=== PATIENT | female | born 1965 | race Hispanic/Latino ===

== ENCOUNTER 2016-08-21 14:47 | Emergency (ER) | payer SELFPAY ==
[~2016-08-21] VITALS: Ht 160 cm; Wt 75.0 kg
[2016-08-21 19:44] LABS: URINE BILIRUBIN - DIPSTICK NEGATIVE (NEGATIVE); URINE BLOOD DIPSTICK NEGATIVE (NEGATIVE); URINE CLARITY CLEAR; URINE COLOR YELLOW; URINE GLUCOSE - DIPSTICK NEGATIVE (NEGATIVE); URINE KETONE NEGATIVE (NEGATIVE); URINE LEUK ESTERASE NEGATIVE (NEGATIVE); URINE NITRITE - DIPSTICK NEGATIVE (Negative); URINE PROTEIN - DIPSTICK NEGATIVE (NEG-TRACE); URINE UROBILINOGEN - DIPSTICK 0.2 E.U./dL (0.2)
[2016-08-21 19:58] LABS: HEMOGLOBIN 14.4 g/dl (12.0-16.0); IMMATURE GRANULOCYTES 0.6 % (0.0-1.0); MEAN CELL VOLUME 92.1 fL CALC (80.0-100.0); MEAN CORPUSCULAR HGB 31.6 pG CALC (26.0-32.0); MEAN CORPUSCULAR HGB CONC 34.3 g/L CALC (32.0-36.0); NEUT# 2.57 thou/uL (2.00-7.15); RED BLOOD COUNT 4.56 mill/uL (4.20-5.60); RED CELL DISTRI WIDTH 12.1 % (11.5-15.5)
[2016-08-21 20:15] LABS: ALKALINE PHOSPHATASE 91 u/l (38-126); AMYLASE 70 u/l (30-110); ANION GAP 16 (6-22 (CALC)); BILIRUBIN, TOTAL 0.5 mg/dL (0.0-1.4); BUN 12 mg/dL (7-17); BUN/CREATININE RATIO 21 (12-20 (CALC)); CARBON DIOXIDE 24 mmol/l (22-30); CHLORIDE 107 mmol/l (95-108); CREATININE 0.6 mg/dL (0.5-1.0); GFR > 60 ML/MIN (>=60 (CALC)); GFR FOR AFR.AMER. > 60 ML/MIN (>=60 (CALC)); GLUCOSE 89 mg/dL (65-105); LIPASE 74 u/l (23-300); POTASSIUM 3.9 mmol/l (3.5-5.1); SGOT/AST 88 u/l (14-36); SGPT/ALT 128 u/l (9-52); SODIUM 142 mmol/l (137-146); TOTAL PROTEIN 7.7 g/dL (6.3-8.2)
[2016-08-22 03:45] VITALS: BP 138/76
== END 2016-08-22 03:56 | disposition home or self-care (01) | DRG 392 ==
LOC: ED 14:47
PROVIDERS: Emergency Medicine
DX: R10.13 Epigastric pain (principal); R11.2 Nausea with vomiting, unspecified; R10.11 Right upper quadrant pain
CPT/HCPCS: S0164

== ENCOUNTER 2016-10-03 17:13 | Emergency (ER) | payer SELFPAY ==
[~2016-10-03] VITALS: Ht 160 cm; Wt 68.0 kg
[2016-10-03 18:05] LABS: HEMATOCRIT 40.4 % (37.0-47.0); HEMOGLOBIN 14.3 g/dl (12.0-16.0); IMMATURE GRANULOCYTES 0.3 % (0.0-1.0); MEAN CELL VOLUME 92.9 fL CALC (80.0-100.0); MEAN CORPUSCULAR HGB 32.9 pG CALC (26.0-32.0); MEAN CORPUSCULAR HGB CONC 35.4 g/L CALC (32.0-36.0); NEUT# 5.25 thou/uL (2.00-7.15); RED BLOOD COUNT 4.35 mill/uL (4.20-5.60); RED CELL DISTRI WIDTH 12.4 % (11.5-15.5)
[2016-10-03 18:20] LABS: ALBUMIN 4.4 g/dL (3.2-5.0); ALKALINE PHOSPHATASE 131 u/l (38-126); ANION GAP 15 (6-22 (CALC)); BILIRUBIN, TOTAL 0.4 mg/dL (0.0-1.4); BUN 17 mg/dL (7-17); BUN/CREATININE RATIO 26 (12-20 (CALC)); CALCIUM 9.5 mg/dL (8.4-10.2); CARBON DIOXIDE 26 mmol/l (22-30); CHLORIDE 104 mmol/l (95-108); CREATININE 0.6 mg/dL (0.5-1.0); GFR > 60 ML/MIN (>=60 (CALC)); GFR FOR AFR.AMER. > 60 ML/MIN (>=60 (CALC)); GLUCOSE 115 mg/dL (65-105); POTASSIUM 3.9 mmol/l (3.5-5.1); SGOT/AST 142 u/l (14-36); SGPT/ALT 210 u/l (9-52); SODIUM 141 mmol/l (137-146); TOTAL PROTEIN 8.4 g/dL (6.3-8.2)
[2016-10-03 18:56] LABS: URINE BILIRUBIN - DIPSTICK NEGATIVE (NEGATIVE); URINE BLOOD DIPSTICK TRACE-INTACT (NEGATIVE); URINE CLARITY CLEAR; URINE COLOR YELLOW; URINE GLUCOSE - DIPSTICK NEGATIVE (NEGATIVE); URINE KETONE NEGATIVE (NEGATIVE); URINE LEUK ESTERASE NEGATIVE (NEGATIVE); URINE NITRITE - DIPSTICK NEGATIVE (Negative); URINE PH 6.5 (4.5-8.0); URINE PROTEIN - DIPSTICK TRACE mg/dL (NEG-TRACE); URINE SPECIFIC GRAVITY 1.015; URINE UROBILINOGEN - DIPSTICK 0.2 E.U./dL (0.2)
[2016-10-03] MEDS ORDERED: MOTRIN800 MG PO ×2 (19:15→22:23)
[2016-10-03 22:35] VITALS: BP 149/74
== END 2016-10-03 22:45 | disposition home or self-care (01) | DRG 605 ==
LOC: ED 17:13
PROVIDERS: Emergency Medicine
DX: S30.1XXA Contusion of abdominal wall, initial encounter (principal); R10.84 Generalized abdominal pain; Y04.2XXA Assault by strike against or bumped into by another person, initial encounter; Y92.009 Unspecified place in unspecified non-institutional (private) residence as the place of occurrence of the external cause
CPT/HCPCS: Q9967

== ENCOUNTER 2018-03-29 22:12 | Emergency (ER) | payer SELFPAY ==
[~2018-03-29] VITALS: Ht 160 cm; Wt 68.2 kg
[~2018-03-29 22:12] MED LIST: MOTRIN800 MG PO
[2018-03-29 22:47] LABS: HEMATOCRIT 40.1 % (37.0-47.0); HEMOGLOBIN 13.8 g/dl (12.0-16.0); IMMATURE GRANULOCYTES 0.2 % (0.0-5.0); MEAN CORPUSCULAR HGB 32.7 pG CALC (26.0-32.0); MEAN CORPUSCULAR HGB CONC 34.4 g/L CALC (32.0-36.0); NEUT# 3.77 thou/uL (2.00-7.15); RED BLOOD COUNT 4.22 mill/uL (4.20-5.60)
[2018-03-29 23:05] LABS: ALBUMIN 4.1 g/dL (3.2-5.0); ALKALINE PHOSPHATASE 134 u/l (38-126); ANION GAP 14 (6-22 (CALC)); BILIRUBIN, TOTAL 0.2 mg/dL (0.0-1.4); BUN 21 mg/dL (7-17); BUN/CREATININE RATIO 35 (12-20 (CALC)); CARBON DIOXIDE 25 mmol/l (22-30); CHLORIDE 108 mmol/l (95-108); CREATININE 0.6 mg/dL (0.5-1.0); GFR > 60 ML/MIN (>=60 (CALC)); GFR FOR AFR.AMER. > 60 ML/MIN (>=60 (CALC)); POTASSIUM 3.4 mmol/l (3.5-5.1); SGOT/AST 51 u/l (14-36); SODIUM 143 mmol/l (137-146); TOTAL PROTEIN 7.7 g/dL (6.3-8.2)
[2018-03-29 23:06] LABS: ACT PARTIAL THROMBO TIME 25.7 SECONDS (20.0-32.5); PROTHROMBIN TIME 10.2 SECONDS (9.0-12.5)
[2018-03-29 23:17] LABS: MYOGLOBIN 32 ng/mL (0 - 62)
[2018-03-29 23:51] VITALS: BP 120/62
== END 2018-03-30 02:00 | disposition left against medical advice (07) | DRG 313 ==
LOC: ED 22:12 → ED-I 03-30 01:10 → ED 03-30 01:28 → MS2 03-30 01:29 → ED 03-30 02:00
PROVIDERS: Emergency Medicine
DX: R07.9 Chest pain, unspecified (principal); E66.9 Obesity, unspecified; F41.9 Anxiety disorder, unspecified; Z91.19 Patient's noncompliance with other medical treatment and regimen

== ENCOUNTER 2018-04-14 14:24 | Emergency (ER) | payer SELFPAY ==
[~2018-04-14] VITALS: Ht 160 cm; Wt 63.0 kg
[2018-04-14 17:12] VITALS: BP 138/73
[2018-04-14] MEDS ORDERED: AUGMENTIN875TAB PO (18:10)
[2018-04-14] MEDS ORDERED: IBUPROFEN600 MG PO (18:10)
[2018-04-14] MEDS ORDERED: BACTROBAN TOP (18:10)
== END 2018-04-14 18:17 | disposition home or self-care (01) | DRG 605 ==
LOC: ED 14:24
DX: S61.451A Open bite of right hand, initial encounter (principal); S60.511A Abrasion of right hand, initial encounter; R22.31 Localized swelling, mass and lump, right upper limb; W54.0XXA Bitten by dog, initial encounter; Y93.K9 Activity, other involving animal care; Y92.007 Garden or yard of unspecified non-institutional (private) residence as the place of occurrence of the external cause

== ENCOUNTER 2018-07-21 10:00 | Emergency (ER) | payer SELFPAY ==
[~2018-07-21] VITALS: Ht 160 cm; Wt 90.0 kg
[~2018-07-21 10:00] MED LIST changes: +AUGMENTIN875TAB PO; +BACTROBAN TOP; +IBUPROFEN600 MG PO
[2018-07-21 10:45] LABS: HEMATOCRIT 44.7 % (37.0-47.0); HEMOGLOBIN 15.3 g/dl (12.0-16.0); IMMATURE GRANULOCYTES 0.2 % (0.0-5.0); MEAN CELL VOLUME 94.3 fL CALC (80.0-100.0); MEAN CORPUSCULAR HGB 32.3 pG CALC (26.0-32.0); MEAN CORPUSCULAR HGB CONC 34.2 g/L CALC (32.0-36.0); NEUT# 2.7 thou/uL (2.00-7.15); RED BLOOD COUNT 4.74 mill/uL (4.20-5.60); RED CELL DISTRI WIDTH 12.3 % (11.5-15.5)
[2018-07-21 10:59] LABS: ALBUMIN 4.5 g/dL (3.2-5.0); ALKALINE PHOSPHATASE 84 u/l (38-126); BILIRUBIN, TOTAL 0.6 mg/dL (0.0-1.4); BUN 10 mg/dL (7-17); BUN/CREATININE RATIO 19 (12-20 (CALC)); CARBON DIOXIDE 25 mmol/l (22-30); CHLORIDE 103 mmol/l (95-108); CREATININE 0.5 mg/dL (0.5-1.0); GFR > 60 ML/MIN (>=60 (CALC)); GFR FOR AFR.AMER. > 60 ML/MIN (>=60 (CALC)); LIPASE 75 u/l (23-300); SGOT/AST 89 u/l (14-36); SODIUM 139 mmol/l (137-146); TOTAL PROTEIN 8.2 g/dL (6.3-8.2)
[2018-07-21 11:00] LABS: ANION GAP 15 (6-22 (CALC)); POTASSIUM 4.3 mmol/l (3.5-5.1)
[2018-07-21 11:09] LABS: URINE BILIRUBIN - DIPSTICK NEGATIVE (NEGATIVE); URINE BLOOD DIPSTICK NEGATIVE (NEGATIVE); URINE COLOR YELLOW; URINE GLUCOSE - DIPSTICK NEGATIVE (NEGATIVE); URINE KETONE NEGATIVE (NEGATIVE); URINE LEUK ESTERASE NEGATIVE (NEGATIVE); URINE NITRITE - DIPSTICK NEGATIVE (Negative); URINE PH 6.5 (4.5-8.0); URINE PROTEIN - DIPSTICK NEGATIVE (NEG-TRACE); URINE UROBILINOGEN - DIPSTICK 0.2 E.U./dL (0.2)
[2018-07-21 14:27] VITALS: BP 127/70
== END 2018-07-21 15:01 | disposition home or self-care (01) | DRG 392 ==
LOC: ED 10:00
PROVIDERS: Family Medicine
DX: R10.11 Right upper quadrant pain (principal)
CPT/HCPCS: Q9967

== ENCOUNTER 2019-07-19 | Emergency (ER) | payer SELFPAY ==
[2019-07-19 09:13] LABS: URINE BILIRUBIN - DIPSTICK NEGATIVE (NEGATIVE); URINE BLOOD DIPSTICK NEGATIVE (NEGATIVE); URINE COLOR YELLOW; URINE GLUCOSE - DIPSTICK NEGATIVE (NEGATIVE); URINE KETONE NEGATIVE (NEGATIVE); URINE LEUK ESTERASE TRACE (NEGATIVE); URINE NITRITE - DIPSTICK NEGATIVE (Negative); URINE PH 6.5 (4.5-8.0); URINE PROTEIN - DIPSTICK NEGATIVE (NEG-TRACE); URINE UROBILINOGEN - DIPSTICK 0.2 E.U./dL (0.2)
[2019-07-19] MEDS ORDERED: AUGMENTIN500TAB PO (09:58)
== END 2019-07-19 10:14 | disposition home or self-care (01) | DRG 153 ==
DX: H66.92 Otitis media, unspecified, left ear (principal); J02.9 Acute pharyngitis, unspecified

== ENCOUNTER 2020-02-10 10:51 | Observation (INO) | payer SELFPAY ==
[~2020-02-10] VITALS: Ht 152.4 cm; Wt 78.2 kg
[~2020-02-10 10:51] MED LIST changes: +AUGMENTIN500TAB PO
--- NOTE | 2020-02-10 10:52 | NUR ---
PATIENT AMBULATED TO ROOM WITH STEADY GAIT AND PHYSICIAN AT BEDSIDE FOR EVAL
--- NOTE | 2020-02-10 11:40 | NUR ---
PT AMBULATED WITH STEADY GAIT TO ROOM AND STATES HAVING PAIN 7/10 IN THE CHEST. PT DENIES N/V, BLURRED VISION, OR SOB. SHE DOES ADMIT TO HAVING DIZZINESS. SINUS JOSEPH OF 47-56 BPM. STATING OF INTERM WAVES OF POTENTIAL SYNCOPY. SKIN WNL.WEAKNESS NOTED. NIH 0. PERRLA. AOX4. STATES HAVING "HEART PROBLEMS' 2 YEARS AGO BUT CANNOT BE SPECIFIC. DENIES TAKING ANY MEDICATIONS DAILY, DENIES ANY PRESCRIPTIONS PRESCRIBED. UPPER LEFT CHEST TENDER UPON PALPATION. WILL CONTINUE TO MONITOR.
[2020-02-10 11:47] LABS: HEMATOCRIT 42.9 % (37.0-47.0); HEMOGLOBIN 14.3 g/dl (12.0-16.0); IMMATURE GRANULOCYTES 0.1 % (0.0-5.0); MEAN CELL VOLUME 94.7 fL CALC (80.0-100.0); MEAN CORPUSCULAR HGB 31.6 pG CALC (26.0-32.0); MEAN CORPUSCULAR HGB CONC 33.3 g/dL CAL (32.0-36.0); NEUT# 2.83 thou/uL (2.00-7.15); RED BLOOD COUNT 4.53 mill/uL (4.20-5.60); RED CELL DISTRI WIDTH 12.2 % (11.5-15.5)
--- NOTE | 2020-02-10 12:30 | NUR ---
PT RECONNECTED TO MONITORING EQUIPMENT. DENIES ANY NEEDS. CHEST PAIN HAS REDUCED TO 0/10. CALL LIGHT WITHIN REACH
[2020-02-10 12:31] LABS: ALBUMIN 4.1 g/dL (3.2-5.0); ALKALINE PHOSPHATASE 109 u/l (38-126); ANION GAP 10 (6-22 (CALC)); BILIRUBIN, TOTAL 0.6 mg/dL (0.0-1.4); BUN 17 mg/dL (7-17); BUN/CREATININE RATIO 31 (12-20 (CALC)); CARBON DIOXIDE 27 mmol/l (22-30); CHLORIDE 105 mmol/l (95-108); CREATININE 0.6 mg/dL (0.5-1.0); GFR > 60 ML/MIN (>=60 (CALC)); GFR FOR AFR.AMER. > 60 ML/MIN (>=60 (CALC)); LIPASE 83 u/l (23-300); POTASSIUM 3.5 mmol/l (3.5-5.1); SGOT/AST 59 u/l (14-36); SODIUM 139 mmol/l (137-146); TOTAL PROTEIN 7.6 g/dL (6.3-8.2)
--- NOTE | 2020-02-10 13:30 | NUR ---
PT RESTING WITH EYES CLOSED
--- NOTE | 2020-02-10 14:30 | NUR ---
GODFREY ALARCON AND Claudia AT BEDSIDE DISCUSSING ADMISSION. PT PLACED CONCERNS AND PLAN OF CARE MENTIONED.
--- NOTE | 2020-02-10 15:12 | NUR ---
REPORT REC FROM SAEID MUELLER
--- NOTE | 2020-02-10 15:18 | NUR ---
GAVE REPORT TO HOME
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
--- NOTE | 2020-02-10 15:29 | NUR ---
Admission Note Report Given to: HOME Transported by: X Wheelchair Stretcher Transported with: X Nurse Transporter X Patent IV O2 X Geomagnetician Location: ICU X MS2 PT TRANSPORTED STABLE AND IN NO DISTRESS TO MED SURG. CARE ASSUMED TO HOME
[2020-02-10 15:30] VITALS: BP 149/76
--- NOTE | 2020-02-10 16:25 | NUR ---
PT BRADYCARDIC WITH HR FLUCTUATING FROM 42-50 BPM. AGNES DONAHUE NOTIFIED, ALREADY AWARE OF TREND. CONTINUE TO MONITOR PT. PT CURRENTLY ASYMPTOMATIC BESIDES FEELING DIZZINESS. CALL LIGHT IN REACH. CONTINUE TO MONITOR.
--- NOTE | 2020-02-10 17:25 | NUR ---
PT SITTING ON THE SIDE OF THE BED EATING DINNER. NO NEEDS AT THIS TIME. CALL LIGHT IN REACH. CONTINUE TO MONITOR.
[2020-02-10 19:00] VITALS: BP 135/66
--- NOTE | 2020-02-10 20:22 | NUR ---
PT RESTING IN BED, NO SIGNS OF DISTRESS NOTED, RESP EVEN AND UNLABORED, PT ALERT AND ORIENTED X3, DISCUSSED POC, DENIES ANY PAIN AT THIS TIME. ASSESSMENT COMPLETED. CALL LIGHT IN REACH,CONTINUE TO MONITOR.
[2020-02-10 23:31] VITALS: BP 141/73
--- NOTE | 2020-02-11 | NUR ---
PT RESTING IN BED WITH EYES CLOSED, NO SIGNS OF DISTRESS NOTED, RESP EVEN AND UNLABORED. CALL LIGHT IN REACH,CONTINUE TO MONITOR.
[2020-02-11 04:00] VITALS: BP 103/66
[2020-02-11 04:05] VITALS: BP 134/97
[2020-02-11 05:58] LABS: HEMATOCRIT 40.5 % (37.0-47.0); HEMOGLOBIN 13.6 g/dl (12.0-16.0); MEAN CELL VOLUME 94.6 fL CALC (80.0-100.0); MEAN CORPUSCULAR HGB 31.8 pG CALC (26.0-32.0); MEAN CORPUSCULAR HGB CONC 33.6 g/dL CAL (32.0-36.0); NEUT# 2.32 thou/uL (2.00-7.15); RED BLOOD COUNT 4.28 mill/uL (4.20-5.60)
[2020-02-11 06:19] LABS: ALBUMIN 3.8 g/dL (3.2-5.0); ALKALINE PHOSPHATASE 93 u/l (38-126); ANION GAP 9 (6-22 (CALC)); BILIRUBIN, TOTAL 0.6 mg/dL (0.0-1.4); BUN 14 mg/dL (7-17); BUN/CREATININE RATIO 30 (12-20 (CALC)); CALCULATED LDLCHOLESTEROL 124 mg/dL (62-129 (CALC)); CARBON DIOXIDE 28 mmol/l (22-30); CHLORIDE 104 mmol/l (95-108); CREATININE 0.5 mg/dL (0.5-1.0); GFR > 60 ML/MIN (>=60 (CALC)); GFR FOR AFR.AMER. > 60 ML/MIN (>=60 (CALC)); HDL CHOLESTEROL 39 mg/dL (>=40); MAGNESIUM 2.1 mg/dL (1.6-2.3); POTASSIUM 3.7 mmol/l (3.5-5.1); SGOT/AST 55 u/l (14-36); SODIUM 137 mmol/l (137-146); TOTAL CHOLESTEROL 192 mg/dl (0-199); TOTAL TRIGLYCERIDES 148 mg/dl (30-149); VLDL CHOLESTROL 30 mg/dl (2-49 (CALC))
--- NOTE | 2020-02-11 06:44 | NUR ---
PT RESTING IN BED, NO SIGNS OF DISTRESS NOTED, RESP EVEN AND UNLABORED. REQUESTING TEA. CALL LIGHT IN REACH,CONTINUE TO MONITOR.
[2020-02-11 07:12] VITALS: BP 146/81
--- NOTE | 2020-02-11 07:26 | NUR ---
PT LAYING IN BED WATCHING TV. A&O X3. NO DISTRESS NOTED. PT REPORTS TO BE FEELING SLIGHTLY BETTER THAN YESTERDAY. NO OTHER NEEDS AT THIS TIME. ASSESSMENT COMPLETED. DISCUSSED POC. CALL LIGHT IN REACH. CONTINUE TO MONITOR.
[2020-02-11 10:30] VITALS: BP 145/84
--- NOTE | 2020-02-11 10:30 | NUR ---
PT C/O WEAKNESS AND FEELING SOB. VS TAKEN. 145/84, HR 53 AND O2 AT 95% RA. HOB ELEVATED. PT REPORTS TO FEEL SLIGHTLY BETTER AFTER HOB WAS ELEVATED. CALL LIGHT IN REACH. ENCOURAGED PT TO CALL IF SOB RETURNED.
--- NOTE | 2020-02-11 12:32 | NUR ---
PT SITTING IN BED. NO DISTRESS OR NEEDS AT THIS TIME. CALL LIGHT IN REACH. CONTINUE TO MONITOR.
--- NOTE | 2020-02-11 13:44 | NUR ---
CALLED DR. CULP OFFICE AT [phone] SPOKE TO HERNAN STATED SHE WILL GIVE HIM THE CONSULTATION.
[2020-02-11 15:00] VITALS: BP 133/72
--- NOTE | 2020-02-11 18:48 | NUR ---
D/C INSTRUCTIONS GIVEN AND REVIEWED WITH PT. PT STILL AWAITING ON TRANSPORT TO GO HOME. IV LEFT IN PLACE AND TO BE REMOVED WHEN D/C'D
[2020-02-11 19:21] VITALS: BP 145/84
--- NOTE | 2020-02-11 20:30 | NUR ---
IV SITE D/C'D, CATH INTACT, 2X2 WRAPPED WITH COBAN APPLIED. TELE REMOVED. PT [facility] LOB[facility]CHAIR[facility]
== END 2020-02-11 20:30 | disposition home or self-care (01) | DRG 313 ==
LOC: ED 10:51 → ED-I 13:20 → ED 14:12 → MS2 14:13
PROVIDERS: Family Medicine; Nurse Practitioner; ADMIT Internal Medicine; ATTEND Internal Medicine
DX: R07.89 Other chest pain (principal); R00.1 Bradycardia, unspecified; R42 Dizziness and giddiness; I49.3 Ventricular premature depolarization; I49.1 Atrial premature depolarization; Z20.828 Contact with and (suspected) exposure to other viral communicable diseases
CPT/HCPCS: G0378; J1650

== ENCOUNTER 2020-08-09 05:21 | Observation (INO) | payer SELFPAY ==
[~2020-08-09] VITALS: Ht 152.4 cm; Wt 81.0 kg
--- NOTE | 2020-08-09 05:25 | NUR ---
PT AMBUALTORY TO ROOM # 6 FOR BEDSIDE TRIAGE.
--- NOTE | 2020-08-09 06:20 | NUR ---
IV INTIATED TO LEFT WRIST AREA WITH BLOOD SPECIMENS AND FIRST SET OF BLOOD CULTURES OBTAINED. SWABS COLLECTED PER ORDER. PT AMBULATORY TO BR FOR URINE SPECIMEN. DISCUSSED WITH PT WAIT TIME FOR RESULTS. VERBALIZED UNDERSTANIDNG. DENIES ANY NEEDS. CALL LIGHT WITHIN REACH.
[2020-08-09 06:34] LABS: HEMATOCRIT 44.3 % (37.0-47.0); HEMOGLOBIN 14.6 g/dl (12.0-16.0); IMMATURE GRANULOCYTES 0.3 % (0.0-5.0); MEAN CELL VOLUME 96.3 fL CALC (80.0-100.0); MEAN CORPUSCULAR HGB 31.7 pG CALC (26.0-32.0); NEUT# 2.88 thou/uL (2.00-7.15); RED BLOOD COUNT 4.6 mill/uL (4.20-5.60); RED CELL DISTRI WIDTH 12.4 % (11.5-15.5)
[2020-08-09 06:36] LABS: URINE BILIRUBIN - DIPSTICK NEGATIVE (NEGATIVE); URINE BLOOD DIPSTICK NEGATIVE (NEGATIVE); URINE COLOR YELLOW; URINE GLUCOSE - DIPSTICK NEGATIVE (NEGATIVE); URINE KETONE NEGATIVE (NEGATIVE); URINE NITRITE - DIPSTICK NEGATIVE (Negative); URINE PROTEIN - DIPSTICK NEGATIVE (NEG-TRACE); URINE UROBILINOGEN - DIPSTICK 0.2 E.U./dL (0.2)
[2020-08-09 06:53] LABS: URINE LEUK ESTERASE SMALL (NEGATIVE)
[2020-08-09 06:54] LABS: URINE RBC 0-2 RBC/hpf (0-5); URINE SQUAMOUS EPITHELIAL CELL MANY EPI/hpf (0-FEW)
[2020-08-09 06:57] LABS: ACT PARTIAL THROMBO TIME 25.4 SECONDS (20.0-32.5); INTERNATIONAL NORMALIZED RATIO 1.1 RATIO (0.7-1.3); PROTHROMBIN TIME 11.1 SECONDS (9.0-12.5)
--- NOTE | 2020-08-09 07:00 | NUR ---
RECEIVED REPORT FROM GENE MUELLER.
--- NOTE | 2020-08-09 07:00 | NUR ---
REPORT TO SHARON MUELLER.
[2020-08-09 07:06] LABS: D-DIMER 0.25 mg/L (0.19-0.60)
--- NOTE | 2020-08-09 07:31 | NUR ---
MD AT BEDSIDE TO DISCUSS RESULTS AND POC.
[2020-08-09 07:40] LABS: ALBUMIN 4.2 g/dL (3.2-5.0); ALKALINE PHOSPHATASE 93 u/l (38-126); AMYLASE 73 u/l (30-110); ANION GAP 11 (6-22 (CALC)); BILIRUBIN, TOTAL 0.7 mg/dL (0.0-1.4); BUN 14 mg/dL (7-17); BUN/CREATININE RATIO 24 (12-20 (CALC)); CARBON DIOXIDE 28 mmol/l (22-30); CHLORIDE 104 mmol/l (95-108); CREATININE 0.6 mg/dL (0.5-1.0); GFR > 60 ML/MIN (>=60 (CALC)); GFR FOR AFR.AMER. > 60 ML/MIN (>=60 (CALC)); LIPASE 76 u/l (23-300); POTASSIUM 3.9 mmol/l (3.5-5.1); SGOT/AST 63 u/l (14-36); SODIUM 139 mmol/l (137-146)
[2020-08-09 10:45] VITALS: BP 138/91
--- NOTE | 2020-08-09 10:45 | NUR ---
REPORT RECEIVED FROM AMI HERRERA. PT CURRENTLY LOCATED IN ER ROOM 6 ON DROPLET PRECAUTIONS FOR POSITIVE FLU A SWAB. RESTING ON STRETCHER SEMI FOWLERS; ALERT AND ORIENTED X 3; [facility] SPEAKING ONLY; GPS FIELD DATA COLLECTOR AT BEDSIDE FOR ADMISSION ASSESSMENT. PT DENIES PAIN CURRENTLY. RESPIRATIONS EVEN AND UNLABORED ON ROOM AIR. SKIN IS FLUSHED, HOT, AND MOIST; AFEBRILE 96.9; VSS. IV SITE TO LEFT WRIST APPEARS HEALTHY AND FLUSHES. POC DISCUSSED. PT ENCOURAGED TO VERBALIZE CONCERNS; STATES UNDERSTANDING. SAFETY MEASURES IN PLACE. CALL LIGHT WITHIN REACH.
--- NOTE | 2020-08-09 11:57 | NUR ---
DR. CHEEMA AT BEDSIDE ALONG WITH BARN AND PROPERTY MANAGER.
--- NOTE | 2020-08-09 13:13 | NUR ---
PATIENT WILL BENEFIT FROM PHYSICAL THERAPY. ORDER FOR PHYSCIAL THERAPY EVALUATION, TREATMENT, AND RECOMMENDATION.
[2020-08-09 13:30] VITALS: BP 138/66
--- NOTE | 2020-08-09 14:05 | NUR ---
TRANSPORTED TO [facility] ROOM 263 VIA STRETCHER; ALERT AND ORIENTED. AMBULATED TO BATHROOM FOR VOID AND INTO BED. TELEMETRY BOX APPLIED AND VERIFIED WITH LSEO; SINUS RHYTHM HR 60. VSS. MEDICATIONS ADMINSITERED. ORIENTED TO NEW ROOM AND CALL LIGHT SYSTEM. FLAT SPRING ASSEMBLER AT BEDSIDE TO REVIEW POC AND REVIEW VISITOR POLICY. SAFETY MEASURES IN PLACE. CALL LIGHT WITHIN REACH.
[2020-08-09 15:20] VITALS: BP 140/79
--- NOTE | 2020-08-09 16:00 | NUR ---
FLEXERIL GIVEN FOR PERSISTENT HEAD AND NECK DISCOMFORT; MORE ON THE LEFT.
[2020-08-09 18:57] VITALS: BP 151/82
--- NOTE | 2020-08-09 19:00 | NUR ---
REPORT RECEIVED FROM Myla DE LEON RN, CARE OF PT ASSUMED AT THIS TIME.
--- NOTE | 2020-08-09 20:07 | NUR ---
PT LAYING IN BED WITH EYES CLOSED, RESPIRATIONS REGULAR AND UNLABORED, APPEARS TO BE SLEEPING COMFORTABLY. PT WAKES EASILY WITH VERBAL STIMULI. PHYSICAL ASSESMENT COMPLETE. PT REPORTS HEAD AND NECK PAIN ARE GONE AND SHE IS NOW EXPERIENCING PAIN TO RUE, ELBOW TO HAND. C/S/M INTACT. PRN APAP AND FLEXERIL ADMINISTERED CO-CURRENTLY WITH SCHEDULED MEDICATIONS. PLAN OF CARE REVIEWED, PT VERBALIZES UNDERSTANDING AND DENIES QUESTIONS. DENTURE CUP PROVIDED FOR PT'S DENTURES. PT DENIES FURTHER NEEDS AT THIS TIME. CALL CONNOLLY WITHIN REACH, AGREES TO CALL PRN.
--- NOTE | 2020-08-10 | NUR ---
PT APPEARS TO BE SLEEPING COMFORTABLY, LAYING IN BED WITH EYES CLOSED, RESPIRATIONS REGULAR AND UNLABORED, NO APPARENT DISTRESS. CALL CONNOLLY REMAIN WITHIN REACH.
[2020-08-10 04:00] VITALS: BP 111/72
--- NOTE | 2020-08-10 04:10 | NUR ---
PAUL FINANCE INTERN IN ROOM TO DRAW AM LABS
[2020-08-10 06:34] LABS: CHOLESTEROL HDL RATIO 4.9 (<4.4 (CALC)); MAGNESIUM 2.2 mg/dL (1.6-2.3)
[2020-08-10 08:10] VITALS: BP 130/63
--- NOTE | 2020-08-10 08:10 | NUR ---
ASSESSMENT IS COMPLETED: IV SITE IS FREE FROM REDNESS OR EDEMA. HR IS REG,PULSES ARE STRONG X4, ABD IS SOFT WITH ACTIV EBS. BREATH SOUDNS ARE CLEAR,BILATERALLY, TELE MONITOR IN PLACE. C/O HEADACHE AND NECK DISCOMFORT
[2020-08-10 10:30] VITALS: BP 140/84
--- NOTE | 2020-08-10 12:15 | NUR ---
PT IS RELAXING IN BED WITH NO DISTRESS NOTED. IV SITE IS FREE FROM REDNESS OR EDEMA.
[2020-08-10 15:00] VITALS: BP 122/75
--- NOTE | 2020-08-10 16:15 | NUR ---
PT TOOK A SHOWER, C/O R SIDED ABD DISCOMFORT. INFORMED THE NURSE PRACTIONER. IV SITE REMAINS FREE FROM REDNESS OR EDEMA., CONTINUE TO OSBERVE AND MONITOR.
--- NOTE | 2020-08-10 18:07 | NUR ---
PT C/O PAIN MEDICATION GIVEN.
[2020-08-10 18:51] VITALS: BP 143/76
--- NOTE | 2020-08-10 19:00 | NUR ---
REPORT RECEIVED FROM Rosina LOPEZ LPN, CARE OF PT ASSUMED AT THIS TIME.
--- NOTE | 2020-08-10 21:00 | NUR ---
PT LYING IN BED SEMI-FOWLERS, TALKING ON MOBILE PHONE. PHYSICAL ASSESMENT COMPLETE. PT REPORTS HER HEAD FEELS BETTER BUT HER LOWER ANTERIOR RIBS ARE IN PAIN. REPORTS IT "HURTS IN HER BONES LIKE WHEN YOU HAVE THE FLU", PRN FLEXERIL AND ULTRAM ADMINISTERED WITH SCHEDULED MEDICATIONS, SEE E-MAR. PLAN OF CARE REVIEWED, PT PARTICIPATES IN TEACHING, VERBALIZES UNDERSTANDING AND DENIES QUESTIONS. FRESH ICE WATER AND APPLE JUICE PROVIDED PER PTS REQUEST. PT DENIES FURTHER NEEDS AT THIS TIME. CALL CONNOLLY WITHIN REACH, AGREES TO CALL PRN. BED LOCKED IN LOW POSITION WITH BEDRAILS UP X2.
[2020-08-10 23:55] VITALS: BP 147/83
--- NOTE | 2020-08-11 | NUR ---
PT APPEARS TO BE SLEEPING COMFORTABLY, LAYING IN BED WITH EYES CLOSED, RESPIRATIONS REGULAR AND UNLABORED, NO APPARENT DISTRESS. CALL CONNOLLY REMAIN WITHIN REACH. BED REMAINS LOCKED IN LOW POSITION WITH BEDRAIL UP X2.
[2020-08-11 04:00] VITALS: BP 146/81
[2020-08-11 08:00] VITALS: BP 153/66
--- NOTE | 2020-08-11 08:00 | NUR ---
ASSESSMENT IS COMPLETED: IV SITE IS FREE FROM REDNESS OR EDEMA/. HR IS REG,PULSES ARE STRONG X4, ABD IS SOFT WITH ACTIVE BS. BREATH SOUNDS ARE CLEAR,BILATERALLY. TELE MONITOR IN PLACE. CONTINUE TO OSBERVE AND MONITOR.
[2020-08-11] MEDS ORDERED: TRAMADOL HCL50 MG PO (08:31)
[2020-08-11] MEDS ORDERED: CYCLOBENZAPR5 MG PO (08:31)
[2020-08-11] MEDS ORDERED: FIORICET PO (08:31)
[2020-08-11] MEDS ORDERED: TAM75CAP PO (08:31)
[2020-08-11] MEDS ORDERED: MEDDOSEPAK PO (08:31)
[2020-08-11] MEDS ORDERED: AMLODIPINE BESYL5 MG PO (08:31)
[2020-08-11 10:30] VITALS: BP 144/69
--- NOTE | 2020-08-11 11:09 | NUR ---
HOME CHAPA RN INTERPRETING THE DISCHARGE TO PT. IV SITE OUT CATHETER INTACT.
--- NOTE | 2020-08-11 11:15 | NUR ---
PT D/C INSTRUCTIONS GIVEN TO PT IN [place]. PT VERBALIZES UNDERSTANDING. PT ENCOURAGED TO RETURN IF NEW OR WORSENING SYMPTOMS OCCUR. PT INFORMED OF SCHEDULED PCP APPOINTMENT FOR TOMORROW AT 8:30 AM.
--- NOTE | 2020-08-11 11:45 | NUR ---
PT WAITING FOR HER RIDE HOME.
--- NOTE | 2020-08-11 11:56 | NUR ---
PT AMBULATED OFF THE UNIT WITH STAFF AND ALL BELONGINGS.
--- NOTE | 2020-08-11 12:00 | NUR ---
Discharge instructions given. Patient verbalizes understanding of same. Discharged in stable condition via Ambulatory to Home with family. All belongings sent with pt.
[2020-08-11] MEDS ORDERED: ULTRAM50 M1 PO (16:30)
== END 2020-08-11 11:54 | disposition home or self-care (01) | DRG 313 ==
LOC: ED 05:21 → ED-I 07:50 → ED 08:04 → MS2 08:05 → ED-I 08:05 → MS2 12:38
PROVIDERS: ADMIT Internal Medicine; ATTEND Internal Medicine
DX: R07.89 Other chest pain (principal); R51.9 Headache, unspecified; M54.2 Cervicalgia; J11.1 Influenza due to unidentified influenza virus with other respiratory manifestations; I10 Essential (primary) hypertension; I49.5 Sick sinus syndrome; Z95.0 Presence of cardiac pacemaker; Z20.822 Contact with and (suspected) exposure to COVID-19
CPT/HCPCS: G0378

== ENCOUNTER 2020-08-29 14:19 | Emergency (ER) | payer SELFPAY ==
[~2020-08-29] VITALS: Ht 152.4 cm; Wt 68.0 kg
[~2020-08-29 14:19] MED LIST changes: +AMLODIPINE BESYL5 MG PO; +CYCLOBENZAPR5 MG PO; +FIORICET PO; +MEDDOSEPAK PO; +TAM75CAP PO; +TRAMADOL HCL50 MG PO; +ULTRAM50 M1 PO
[2020-08-29 15:23] LABS: HEMATOCRIT 45.4 % (37.0-47.0); HEMOGLOBIN 15.3 g/dl (12.0-16.0); IMMATURE GRANULOCYTES 0.1 % (0.0-5.0); MEAN CELL VOLUME 93.2 fL CALC (80.0-100.0); MEAN CORPUSCULAR HGB 31.4 pG CALC (26.0-32.0); MEAN CORPUSCULAR HGB CONC 33.7 g/dL CAL (32.0-36.0); NEUT# 5.25 thou/uL (2.00-7.15); RED BLOOD COUNT 4.87 mill/uL (4.20-5.60); RED CELL DISTRI WIDTH 12.3 % (11.5-15.5)
[2020-08-29 15:39] LABS: ALBUMIN 4.5 g/dL (3.2-5.0); ALKALINE PHOSPHATASE 130 u/l (38-126); AMYLASE 92 u/l (30-110); ANION GAP 15 (6-22 (CALC)); BILIRUBIN, TOTAL 0.8 mg/dL (0.0-1.4); BUN 14 mg/dL (7-17); BUN/CREATININE RATIO 29 (12-20 (CALC)); CARBON DIOXIDE 22 mmol/l (22-30); CHLORIDE 103 mmol/l (95-108); CREATININE 0.5 mg/dL (0.5-1.0); GFR > 60 ML/MIN (>=60 (CALC)); GFR FOR AFR.AMER. > 60 ML/MIN (>=60 (CALC)); LIPASE 78 u/l (23-300); POTASSIUM 3.9 mmol/l (3.5-5.1); SGOT/AST 71 u/l (14-36); SODIUM 136 mmol/l (137-146); TOTAL PROTEIN 9.1 g/dL (6.3-8.2)
[2020-08-29] MEDS ORDERED: ULTRAM50 MG PO (18:44)
[2020-08-29 18:45] VITALS: BP 139/57
== END 2020-08-29 18:56 | disposition home or self-care (01) | DRG 103 ==
LOC: ED 14:19
DX: R51.9 Headache, unspecified (principal); I10 Essential (primary) hypertension; Z95.0 Presence of cardiac pacemaker; Z87.442 Personal history of urinary calculi; Z20.822 Contact with and (suspected) exposure to COVID-19

== ENCOUNTER 2021-02-16 03:58 | Emergency (ER) | payer SELFPAY ==
[~2021-02-16] VITALS: Ht 152.4 cm; Wt 75.0 kg
[~2021-02-16 03:58] MED LIST changes: +ULTRAM50 MG PO
[2021-02-16 05:51] LABS: HEMATOCRIT 45.2 % (37.0-47.0); HEMOGLOBIN 15.4 g/dl (12.0-16.0); IMMATURE GRANULOCYTES 0.1 % (0.0-5.0); MEAN CELL VOLUME 96.6 fL CALC (80.0-100.0); MEAN CORPUSCULAR HGB 32.9 pG CALC (26.0-32.0); MEAN CORPUSCULAR HGB CONC 34.1 g/dL CAL (32.0-36.0); NEUT# 4.75 thou/uL (2.00-7.15); RED BLOOD COUNT 4.68 mill/uL (4.20-5.60); RED CELL DISTRI WIDTH 12.3 % (11.5-15.5)
[2021-02-16 06:06] LABS: ALKALINE PHOSPHATASE 117 u/l (38-126); AMYLASE 98 u/l (30-110); ANION GAP 10 (6-22 (CALC)); BILIRUBIN, TOTAL 0.5 mg/dL (0.0-1.4); BUN 17 mg/dL (7-17); BUN/CREATININE RATIO 31 (12-20 (CALC)); CHLORIDE 105 mmol/l (95-108); CREATININE 0.6 mg/dL (0.5-1.0); GFR > 60 ML/MIN (>=60 (CALC)); GFR FOR AFR.AMER. > 60 ML/MIN (>=60 (CALC)); HCG SERUM/URINE (NEG/POS) NEGATIVE (NEGATIVE); LIPASE 128 u/l (23-300); POTASSIUM 3.4 mmol/l (3.5-5.1); SGOT/AST 47 u/l (14-36); SODIUM 139 mmol/l (137-146); TOTAL PROTEIN 7.5 g/dL (6.3-8.2)
[2021-02-16 06:08] LABS: CARBON DIOXIDE 27 mmol/l (22-30)
[2021-02-16 06:16] LABS: MYOGLOBIN 14 ng/mL (0 - 62)
[2021-02-16 06:20] LABS: ACT PARTIAL THROMBO TIME 23.8 SECONDS (20.0-32.5)
[2021-02-16 06:22] LABS: D-DIMER 0.33 mg/L (0.19-0.60)
[2021-02-16] MEDS ORDERED: VOLTAREN - GENE75 MG PO (06:57)
[2021-02-16 07:55] VITALS: BP 160/77
== END 2021-02-16 07:55 | disposition home or self-care (01) | DRG 103 ==
LOC: ED 03:58
PROVIDERS: Family Medicine
DX: R51.9 Headache, unspecified (principal); M79.10 Myalgia, unspecified site; I10 Essential (primary) hypertension; Z95.0 Presence of cardiac pacemaker; Z20.822 Contact with and (suspected) exposure to COVID-19

== ENCOUNTER 2021-08-13 23:23 | Emergency (ER) | payer SELFPAY ==
[~2021-08-13] VITALS: Ht 152.4 cm; Wt 91.0 kg
[~2021-08-13 23:23] MED LIST changes: +VOLTAREN - GENE75 MG PO
[2021-08-13 23:34] VITALS: BP 150/73
[2021-08-13 23:46] VITALS: BP 115/57
[2021-08-14 01:06] LABS: HEMATOCRIT 42.4 % (37.0-47.0); HEMOGLOBIN 13.7 g/dl (12.0-16.0); MEAN CELL VOLUME 97.9 fL CALC (80.0-100.0); MEAN CORPUSCULAR HGB 31.6 pG CALC (26.0-32.0); MEAN CORPUSCULAR HGB CONC 32.3 g/dL CAL (32.0-36.0); NEUT# 2.25 thou/uL (2.00-7.15); RED BLOOD COUNT 4.33 mill/uL (4.20-5.60); RED CELL DISTRI WIDTH 12.7 % (11.5-15.5)
[2021-08-14 01:28] LABS: ALBUMIN 3.9 g/dL (3.2-5.0); ALKALINE PHOSPHATASE 98 u/l (38-126); ANION GAP 11 (6-22 (CALC)); BILIRUBIN, TOTAL 0.3 mg/dL (0.0-1.4); BUN 10 mg/dL (7-17); BUN/CREATININE RATIO 20 (12-20 (CALC)); C-REACTIVE PROTEIN < 0.5 mg/dL (0-0.9); CARBON DIOXIDE 27 mmol/l (22-30); CHLORIDE 106 mmol/l (95-108); CPK 136 u/l (30-165); CREATININE 0.5 mg/dL (0.5-1.0); GFR > 60 ML/MIN (>=60 (CALC)); GFR FOR AFR.AMER. > 60 ML/MIN (>=60 (CALC)); MAGNESIUM 2.1 mg/dL (1.6-2.3); POTASSIUM 3.6 mmol/l (3.5-5.1); SGOT/AST 79 u/l (14-36); SODIUM 140 mmol/l (137-146); TOTAL PROTEIN 7.4 g/dL (6.3-8.2)
[2021-08-14 01:37] LABS: MYOGLOBIN 62 ng/mL (0 - 62)
[2021-08-14 01:56] LABS: TSH, 3RD GENERATION 0.88 uIU/mL (0.47 - 4.68)
[2021-08-14 02:30] VITALS: BP 139/84
[2021-08-14 02:34] LABS: URINE BILIRUBIN - DIPSTICK NEGATIVE (NEGATIVE); URINE COLOR YELLOW; URINE GLUCOSE - DIPSTICK NEGATIVE (NEGATIVE); URINE KETONE NEGATIVE (NEGATIVE); URINE PROTEIN - DIPSTICK NEGATIVE (NEG-TRACE); URINE UROBILINOGEN - DIPSTICK 0.2 E.U./dL (0.2)
[2021-08-14 02:40] LABS: URINE LEUK ESTERASE SMALL (NEGATIVE); URINE NITRITE - DIPSTICK NEGATIVE (Negative)
[2021-08-14 02:42] LABS: URINE BLOOD DIPSTICK NEGATIVE (NEGATIVE)
[2021-08-14 02:44] LABS: URINE BACTERIA MODERATE hpf; URINE EPITHELIAL CELLS MANY EPI/hpf (0-FEW)
[2021-08-14] MEDS ORDERED: TRAMADOL HCL50 MG PO (02:45)
[2021-08-14] MEDS ORDERED: VOLTAREN - GENE75 MG PO (02:45)
[2021-08-14 02:46] VITALS: BP 145/66
[2021-08-14 03:01] VITALS: BP 144/61
[2021-08-14 03:10] VITALS: BP 138/78
== END 2021-08-14 03:10 | disposition home or self-care (01) | DRG 103 ==
LOC: ED 23:23
PROVIDERS: Family Medicine
DX: R51.9 Headache, unspecified (principal); R07.89 Other chest pain; M72.2 Plantar fascial fibromatosis; M79.10 Myalgia, unspecified site; M25.50 Pain in unspecified joint; I10 Essential (primary) hypertension; R82.71 Bacteriuria; Z95.0 Presence of cardiac pacemaker; Z87.442 Personal history of urinary calculi; Z20.822 Contact with and (suspected) exposure to COVID-19

== ENCOUNTER 2021-11-09 14:05 | Emergency (ER) | payer SELFPAY ==
[~2021-11-09] VITALS: Ht 152.4 cm; Wt 81.0 kg
[2021-11-09 15:21] VITALS: BP 155/71
[2021-11-09 16:00] VITALS: BP 142/81
[2021-11-09] MEDS ORDERED: LISINOPRIL5 MG PO (16:35)
[2021-11-09] MEDS ORDERED: LORTAB 1010 MG PO (16:36)
[2021-11-09] MEDS ORDERED: FAMOTIDINE20 M1 PO (16:36)
[2021-11-09] MEDS ORDERED: FLEXERIL5 M1 PO (16:36)
[2021-11-09] MEDS ORDERED: AMLODIPINE BESYL5 MG PO (16:37)
[2021-11-09 17:00] VITALS: BP 139/71
[2021-11-09 18:00] VITALS: BP 154/79
[2021-11-09 18:17] LABS: HEMATOCRIT 41.7 % (37.0-47.0); HEMOGLOBIN 14.3 g/dl (12.0-16.0); IMMATURE GRANULOCYTES 0.1 % (0.0-5.0); MEAN CELL VOLUME 93.9 fL CALC (80.0-100.0); MEAN CORPUSCULAR HGB 32.2 pG CALC (26.0-32.0); MEAN CORPUSCULAR HGB CONC 34.3 g/dL CAL (32.0-36.0); NEUT# 2.45 thou/uL (2.00-7.15); RED BLOOD COUNT 4.44 mill/uL (4.20-5.60); RED CELL DISTRI WIDTH 12.3 % (11.5-15.5)
[2021-11-09 18:31] LABS: ALBUMIN 4.1 g/dL (3.2-5.0); ALKALINE PHOSPHATASE 97 u/l (38-126); ANION GAP 13 (6-22 (CALC)); BILIRUBIN, TOTAL 0.2 mg/dL (0.0-1.4); BUN 19 mg/dL (7-17); BUN/CREATININE RATIO 31 (12-20 (CALC)); CARBON DIOXIDE 25 mmol/l (22-30); CHLORIDE 110 mmol/l (95-108); CREATININE 0.6 mg/dL (0.5-1.0); GFR FOR AFR.AMER. > 60 ML/MIN (>=60 (CALC)); GFR OTHER RACES > 60 ML/MIN (>=60 (CALC)); LIPASE 220 u/l (23-300); POTASSIUM 3.6 mmol/l (3.5-5.1); SGOT/AST 45 u/l (14-36); SODIUM 144 mmol/l (137-146); TOTAL PROTEIN 7.9 g/dL (6.3-8.2)
[2021-11-09 20:11] VITALS: BP 154/79
== END 2021-11-09 20:22 | disposition home or self-care (01) | DRG 153 ==
LOC: ED 14:05
PROVIDERS: Nurse Practitioner
DX: J06.9 Acute upper respiratory infection, unspecified (principal); I10 Essential (primary) hypertension; Z95.0 Presence of cardiac pacemaker; Z20.822 Contact with and (suspected) exposure to COVID-19
CPT/HCPCS: Q9967

== ENCOUNTER 2022-01-01 03:42 | Emergency (ER) | payer SELFPAY ==
[~2022-01-01] VITALS: Ht 152.4 cm; Wt 61.0 kg
[~2022-01-01 03:42] MED LIST changes: +FAMOTIDINE20 M1 PO; +FLEXERIL5 M1 PO; +LISINOPRIL5 MG PO; +LORTAB 1010 MG PO
[2022-01-01] MEDS ORDERED: BACLOFEN5 MG (04:02)
[2022-01-01 05:28] LABS: HEMATOCRIT 42.9 % (37.0-47.0); HEMOGLOBIN 14.5 g/dl (12.0-16.0); IMMATURE GRANULOCYTES 0.3 % (0.0-5.0); MEAN CELL VOLUME 96.8 fL CALC (80.0-100.0); MEAN CORPUSCULAR HGB 32.7 pG CALC (26.0-32.0); MEAN CORPUSCULAR HGB CONC 33.8 g/dL CAL (32.0-36.0); NEUT# 2.23 thou/uL (2.00-7.15); RED BLOOD COUNT 4.43 mill/uL (4.20-5.60); RED CELL DISTRI WIDTH 12.3 % (11.5-15.5)
[2022-01-01 05:29] LABS: URINE BILIRUBIN - DIPSTICK NEGATIVE (NEGATIVE); URINE BLOOD DIPSTICK NEGATIVE (NEGATIVE); URINE COLOR YELLOW; URINE GLUCOSE - DIPSTICK NEGATIVE (NEGATIVE); URINE KETONE NEGATIVE (NEGATIVE); URINE LEUK ESTERASE NEGATIVE (NEGATIVE); URINE PROTEIN - DIPSTICK NEGATIVE (NEG-TRACE); URINE UROBILINOGEN - DIPSTICK 0.2 E.U./dL (0.2)
[2022-01-01 05:31] LABS: URINE NITRITE - DIPSTICK NEGATIVE (Negative)
[2022-01-01 08:04] LABS: ALKALINE PHOSPHATASE 95 u/l (38-126); BUN 13 mg/dL (7-17); BUN/CREATININE RATIO 29 (12-20 (CALC)); CARBON DIOXIDE 22 mmol/l (22-30); CHLORIDE 107 mmol/l (95-108); CREATININE 0.5 mg/dL (0.5-1.0); GFR FOR AFR.AMER. > 60 ML/MIN (>=60 (CALC)); GFR OTHER RACES > 60 ML/MIN (>=60 (CALC)); SGOT/AST 49 u/l (14-36); SODIUM 137 mmol/l (137-146); TOTAL PROTEIN 7.5 g/dL (6.3-8.2)
[2022-01-01 08:05] LABS: ANION GAP 12 (6-22 (CALC)); POTASSIUM 4.2 mmol/l (3.5-5.1)
[2022-01-01 08:08] LABS: BILIRUBIN, TOTAL 0.5 mg/dL (0.0-1.4)
[2022-01-01 10:11] VITALS: BP 123/57
[2022-01-01] MEDS ORDERED: HYOSCYAMINE0.125 M3 PO (10:29)
== END 2022-01-01 10:50 | disposition home or self-care (01) | DRG 392 ==
LOC: ED 03:42
PROVIDERS: Family Medicine; Internal Medicine
DX: R10.31 Right lower quadrant pain (principal); R10.32 Left lower quadrant pain; I10 Essential (primary) hypertension; Z87.442 Personal history of urinary calculi; Z95.0 Presence of cardiac pacemaker

== ENCOUNTER 2022-03-29 09:15 | Emergency (ER) | payer SELFPAY ==
[~2022-03-29] VITALS: Ht 152.4 cm; Wt 81.8 kg
[~2022-03-29 09:15] MED LIST changes: +BACLOFEN5 MG; +HYOSCYAMINE0.125 M3 PO
[2022-03-29 09:40] VITALS: BP 153/67
[2022-03-29] MEDS ORDERED: TIZANIDINE HYDRO4 M1 PO (09:44)
[2022-03-29 09:53] LABS: HEMATOCRIT 43.7 % (37.0-47.0); HEMOGLOBIN 14.7 g/dl (12.0-16.0); IMMATURE GRANULOCYTES 0.1 % (0.0-5.0); MEAN CELL VOLUME 95.4 fL CALC (80.0-100.0); MEAN CORPUSCULAR HGB 32.1 pG CALC (26.0-32.0); MEAN CORPUSCULAR HGB CONC 33.6 g/dL CAL (32.0-36.0); NEUT# 7.07 thou/uL (2.00-7.15); RED BLOOD COUNT 4.58 mill/uL (4.20-5.60); RED CELL DISTRI WIDTH 12.5 % (11.5-15.5)
[2022-03-29 10:15] LABS: URINE BILIRUBIN - DIPSTICK NEGATIVE (NEGATIVE); URINE BLOOD DIPSTICK NEGATIVE (NEGATIVE); URINE COLOR YELLOW; URINE GLUCOSE - DIPSTICK NEGATIVE (NEGATIVE); URINE KETONE NEGATIVE (NEGATIVE); URINE PH 6.5 (4.5-8.0); URINE PROTEIN - DIPSTICK NEGATIVE (NEG-TRACE); URINE UROBILINOGEN - DIPSTICK 0.2 E.U./dL (0.2)
[2022-03-29 10:27] LABS: ALKALINE PHOSPHATASE 98 u/l (38-126); BILIRUBIN, TOTAL 0.5 mg/dL (0.0-1.4); BUN 22 mg/dL (7-17); BUN/CREATININE RATIO 34 (12-20 (CALC)); CHLORIDE 104 mmol/l (95-108); CREATININE 0.6 mg/dL (0.5-1.0); GFR FOR AFR.AMER. > 60 ML/MIN (>=60 (CALC)); GFR OTHER RACES > 60 ML/MIN (>=60 (CALC)); LIPASE 64 u/l (23-300); SGOT/AST 55 u/l (14-36); SODIUM 141 mmol/l (137-146)
[2022-03-29 10:28] LABS: ALBUMIN 4.9 g/dL (3.2-5.0); ANION GAP 14 (6-22 (CALC)); CARBON DIOXIDE 27 mmol/l (22-30)
[2022-03-29 10:34] LABS: URINE NITRITE - DIPSTICK NEGATIVE (Negative)
[2022-03-29 10:40] LABS: URINE LEUK ESTERASE SMALL (NEGATIVE)
[2022-03-29 10:41] LABS: URINE BACTERIA FEW hpf; URINE EPITHELIAL CELLS MODERATE EPI/hpf (0-FEW)
[2022-03-29] MEDS ORDERED: CEPHALEXIN500 M1 PO (13:15)
== END 2022-03-29 13:34 | disposition home or self-care (01) | DRG 690 ==
LOC: ED 09:15
PROVIDERS: Family Medicine
DX: N39.0 Urinary tract infection, site not specified (principal); R51.9 Headache, unspecified; R53.83 Other fatigue